=== PATIENT | male | born 1990 | race Caucasian/White ===

== ENCOUNTER 2025-01-17 08:11 | Emergency (ER) | payer MEDICAID ==
[~2025-01-17] VITALS: Ht 177.8 cm; Wt 71.0 kg
[2025-01-17 08:12] VITALS: TEMP 37.1; O2SAT 99
[2025-01-17 08:58] VITALS: BP 127/79; PULSE 106; RESP 18; O2SAT 100
== END 2025-01-17 09:24 | disposition home or self-care (01) ==
LOC: ER 08:11
DX: R46.2 Strange and inexplicable behavior (principal); Z59.00 Homelessness unspecified
CPT/HCPCS: 99283

== ENCOUNTER 2025-01-17 20:14 | Emergency (ER) | payer MEDICAID ==
[~2025-01-17] VITALS: Ht 177.8 cm; Wt 81.0 kg
[2025-01-17 20:19] VITALS: O2SAT 100
[2025-01-17 23:35] VITALS: BP 124/70; PULSE 58; RESP 14; TEMP 36.9; O2SAT 100
== END 2025-01-18 00:58 | disposition home or self-care (01) ==
LOC: ER 20:14
DX: R46.1 Bizarre personal appearance (principal); Z59.00 Homelessness unspecified
CPT/HCPCS: 99281; 99282